=== PATIENT | male | born 1990 | race Caucasian/White ===

== ENCOUNTER 2018-01-13 20:08 | Emergency (ER) | payer MEDICAID, OTHER ==
[2018-01-13] MEDS: KETOROLAC 60 MG INJ IM (23:53)
== END 2018-01-13 23:59 | disposition home or self-care (01) ==
LOC: FTE 20:08
DX: S40.012A Contusion of left shoulder, initial encounter (principal); S06.0X0A Concussion without loss of consciousness, initial encounter; M62.838 Other muscle spasm; R07.9 Chest pain, unspecified; V89.2XXA Person injured in unspecified motor-vehicle accident, traffic, initial encounter
CPT/HCPCS: 70450; 71046; 72125; 73030; 96372; 99285-25